=== PATIENT | male | born 1950 | race Caucasian/White ===

== ENCOUNTER 2018-02-23 10:30 | Emergency (ER) | payer MEDICARE, BC ==
--- NOTE | 2018-02-23 12:09 | EDM.PDOC ---
ED HPI GENERAL MEDICAL PROBLEM - General Chief Complaint: Back Pain or Injury Stated Complaint: PAIN IN BACK--CANCER PT Time Seen by Provider: 02/23/18 12:00 Source of Information: Reports: Patient, Family, RN Notes Reviewed History Limitations: Reports: No Limitations - History of Present Illness INITIAL COMMENTS - FREE TEXT/NARRATIVE: 67-year-old gentleman presents to the emergency department today with left- sided back pain, he has a known history of bile duct cancer stage IV, he states a couple weeks ago he presented with back pain diagnosed with pneumonia he is concerned he may be developing pneumonia again. He does have low-grade fevers 99 this is not out of the ordinary for him as he is currently undergoing chemotherapy. He denies any cough shortness of breath nausea vomiting he does admit to some constipation last bowel movement was 5 days ago Left Lower Back Pain Score (Numeric/FACES): 0 - Related Data Allergies Allergy/AdvReac Type Severity Reaction Status Date / Time No Known Allergies Allergy Verified 02/23/18 11:07 Home Meds: Home Meds Acetaminophen [Tylenol Extra Strength] 1,000 mg PO ASDIRECTED PRN 02/23/18 [ History] Gemcitabine [Gemzar] 200 mg IV ASDIRECTED 02/23/18 [History] HYDROmorphone [Dilaudid] 2 mg PO Q4H PRN 02/23/18 [History] LORazepam 0.5 mg PO Q4HR PRN 02/23/18 [History] Ondansetron HCl [Zofran] 4 mg PO ASDIRECTED PRN 02/23/18 [History] PACLitaxel Protein-Bound [Abraxane] 100 mg IV ASDIRECTED 02/23/18 [History] Prochlorperazine [Compazine] 10 mg PO Q8H PRN 02/23/18 [History] Sennosides [Senna] 2 tab PO BID PRN 02/23/18 [History] Past Medical History Cardiovascular History: Reports: High Cholesterol Respiratory History: Reports: Other (See Below) Other Respiratory History: pnuemonia 2 weeks ago Gastrointestinal History: Reports: Chronic Constipation Hematologic History: Reports: Iron Deficiency Oncologic (Cancer) History: Reports: Basal Cell Carcinoma, Lymphoma, Other (See Below) - Infectious Disease History Infectious Disease History: Reports: Chicken Pox, Hepatitis B, Hepatitis C, Measles, Mumps - Past Surgical History Cardiovascular Surgical History: Reports: None Respiratory Surgical History: Reports: None GI Surgical History: Reports: Colonoscopy Oncologic Surgical History: Reports: None Dermatological Surgical History: Reports: Skin Biopsy, Other (See Below) Social & Family History - Family History Family Medical History: Noncontributory - Tobacco Use Smoking Status *Q: Former Smoker Years of Tobacco use: 52 Packs/Tins Daily: 2 Used Tobacco, but Quit: Yes Month/Year Tobacco Last Used: 2014 Second Hand Smoke Exposure: No - Caffeine Use Caffeine Use: Reports: Coffee - Recreational Drug Use Recreational Drug Use: No ED ROS GENERAL - Review of Systems Review Of Systems: See Below Constitutional: Reports: Fever. Denies: Chills, Weakness HEENT: Reports: No Symptoms Respiratory: Reports: No Symptoms Cardiovascular: Reports: No Symptoms GI/Abdominal: Reports: Constipation : Reports: No Symptoms Musculoskeletal: Reports: Back Pain Skin: Reports: No Symptoms Neurological: Reports: No Symptoms ED EXAM, GENERAL - Physical Exam Exam: See Below Exam Limited By: No Limitations General Appearance: Alert, WD/WN, No Apparent Distress Respiratory/Chest: No Respiratory Distress, Lungs Clear, Normal Breath Sounds, No Accessory Muscle Use Cardiovascular: Regular Rate, Rhythm, No Murmur GI/Abdominal: Soft, Non-Tender Back Exam: Normal Inspection, Full Range of Motion. No: CVA Tenderness (R), CVA Tenderness (L), Paraspinal Tenderness, Vertebral Tenderness Extremities: Normal Inspection, Normal Range of Motion, Non-Tender, No Pedal Edema Course - Vital Signs Last Recorded V/S: Last Vital Signs Temp 96.8 F 02/23/18 11:25 Pulse 88 02/23/18 11:25 Resp 16 02/23/18 11:25 BP 124/72 02/23/18 11:25 Pulse Ox 99 02/23/18 11:25 - Orders/Labs/Meds Labs: Laboratory Tests 02/23/18 02/23/18 02/23/18 Range/Units 12:13 12:13 12:13 WBC 10.9 (4.5-11.0) K/uL RBC 3.34 L (4.30-5.90) M/uL Hgb 8.4 L (12.0-15.0) g/dL Hct 27.8 L (40.0-54.0) % MCV 83 (80-98) fL MCH 25 L (27-31) pg MCHC 30 L (32-36) % Plt Count 666 H (150-400) K/uL Neut % (Auto) 67 H (36-66) % Lymph % (Auto) 14 L (24-44) % [place] % (Auto) 18 H (2-6) % Eos % (Auto) 1 L (2-4) % Baso % (Auto) 0 (0-1) % Sodium 135 L (140-148) mmol/L Potassium 4.5 (3.6-5.2) mmol/L Chloride 98 L (100-108) mmol/L Carbon Dioxide 25 (21-32) mmol/L Anion Gap 16.5 H (5.0-14.0) mmol/L BUN 18 (7-18) mg/dL Creatinine 1.0 (0.8-1.3) mg/dL Est Cr Clr Drug Dosing 75.03 mL/min Estimated GFR (MDRD) > 60 (>60) Glucose 96 (74-106) mg/dL Lactic Acid 1.0 (0.4-2.0) mmol/L Calcium 9.5 (8.5-10.1) mg/dL Total Bilirubin 0.5 (0.2-1.0) mg/dL AST 15 (15-37) U/L ALT 21 (12-78) U/L Alkaline Phosphatase 311 H (46-116) U/L Total Protein 7.5 (6.4-8.2) g/dL Albumin 2.5 L (3.4-5.0) g/dL Globulin 5.0 H (2.3-3.5) g/dL Albumin/Globulin Ratio 0.5 L (1.2-2.2) Departure - Departure Time of Disposition: 14:16 Disposition: Home, Self-Care 01 Condition: Fair Clinical Impression: Functional constipation - Discharge Information Referrals: PCP,None [Primary Care Provider] - Forms: ED Department Discharge Additional Instructions: Follow the colonoscopy prep to relieve your constipation, Please followup with your primary care provider in 3-5 days if not better, please call return to the emergency department with worsening of symptoms. - Assessment/Plan Plan: Assessment Acuity = acute Site and laterality = functional constipation complicated gentleman with known history of gallbladder cancer Etiology = slow transit time Manifestations = back pain Location of injury = Home Lab values = hemoglobin low at 8.4 consistent normochromic anemia platelets elevated at 666 consistent with thrombocytosis, lactic acid normal 1.0, chest x- ray and abdominal films show no acute process Plan History remained pain-free while in the emergency department plan is to follow the colonoscopy prep to relieve his constipation follow-up with his primary care upon return home This note was dictated using [email or web address] voice recognition software please call with any questions on syntax or grammar.
--- NOTE | 2018-02-23 13:53 | CR ---
Abdomen 1V Upright INDICATION: Pain. FINDINGS: The bowel gas pattern is unremarkable. There is a common bile duct stent which appears in g ood position. There is no bowel distention. There are no pathologic air-fluid levels. No free air is seen. No pathologic calcifications are demonstrated. IMPRESSION: No acute findings are demonstrated.
--- NOTE | 2018-02-23 13:53 | CR ---
Chest 2V FINDINGS: There is an [id number] catheter on the right. The tip descends down into the SVC. The he art and vascular structures are normal in appearance. No infiltrates or effusions are demonstrated. T he skeletal structures are unremarkable. IMPRESSION: Negative exam.
== END 2018-02-23 14:37 | disposition home or self-care (01) ==
LOC: JP.ED 10:30
DX: K59.04 Chronic idiopathic constipation (principal); C23 Malignant neoplasm of gallbladder; C24.0 Malignant neoplasm of extrahepatic bile duct
CPT/HCPCS: 36415; 71046; 71046-26; 74018; 74018-26; 80053; 83605; 85025; 99284